=== PATIENT | male | born 1945 | race Caucasian/White ===

== ENCOUNTER → 2018-07-21 | Outpatient (CLI) | payer MEDICARE ==
[~2018-07-21] MED LIST: AZIT250 PO; FOLI1 PO; GEMF600 PO; LEVSOD175 PO; METH10 PO; NORT50 PO; OXYACE5T PO; OXYC20ER PO; RXOXYACE PO
== END ==
LOC: LAB SHORT 10:24 → PLD 10:24
DX: D48.5 Neoplasm of uncertain behavior of skin (principal)
CPT/HCPCS: 88305

== ENCOUNTER → 2021-06-11 | Outpatient (CLI) | payer MEDICARE | END | disposition home or self-care (01) | LOC: LAB 11:40 → LAB SHORT 11:40 | DX: L82.1 Other seborrheic keratosis (principal) | CPT/HCPCS: 88305 ==

== ENCOUNTER 2024-10-18 00:38 | Emergency (ER) | payer MEDICARE ==
[~2024-10-18] VITALS: Ht 172.7 cm; Wt 83.9 kg
[2024-10-18 01:02] VITALS: BP 182/81
== END 2024-10-18 02:47 | disposition left against medical advice (07) ==
LOC: ER 00:38
DX: K59.00 Constipation, unspecified (principal); Z53.21 Procedure and treatment not carried out due to patient leaving prior to being seen by health care provider
CPT/HCPCS: 74018